=== PATIENT | female | born 1985 | race Caucasian/White ===

== ENCOUNTER 2017-07-15 13:56 | Emergency (ER) | payer OTHER ==
[2017-07-15 14:17] VITALS: BP 141/72
--- NOTE | 2017-07-15 14:38 | ERNOTE ---
ENT HPI Date of Service: 07/15/17 Presenting Symptoms: other - pharyngitis. Difficulty swallowing Time Seen by Provider: 07/15/17 14:28 Source: patient Exam Limitations: no limitations - Immun/Allergies/Home Medications Immunizations: IMMUNIZATION HX Immunizations Up to Date Yes History of Influenza Vaccine No Hx Pneumococcal Vaccination No Allergies/Adverse Reactions: Allergies Allergy/AdvReac Type Severity Reaction Status Date / Time Penicillins Allergy Verified 07/15/17 14:17 Home Medications: HOME MEDICATIONS Omeprazole [Prilosec] 20 mg PO DAILY 05/24/14 [Last Taken 11/20/14] Venlafaxine HCl [Effexor] 75 mg PO DAILY 11/20/14 [Last Taken 11/20/14] Azithromycin 250 mg PO DAILY 5 Days #6 tablet 07/15/17 [Last Taken Unknown] - History of Present Illness Narrative: Patient states that starting yesterday morning she has had sore throat with difficulty swallowing. States she had a fever yesterday but does not believe she has one today. Also continues with a mild headache which coincides with the throat pain. Denies any other symptoms. Date (Duration): 07/14/17 Severity: Present: moderate ENT Location: Present: throat Prearrival Treatment: Present: no prearrival treatment Modifying Factors - Worsens: Reports: other - Swallowing Associated Symptoms - ENT: Reports: fever, headache Review of Systems - Narrative Narrative: See HPI - Review of Systems Constitutional: Present: fever - Fever yesterday but denies today. EYE: Present: no symptoms reported ENT: Present: sore throat, other - Complaining of the sore throat with white spots in the back. Difficulty swallowing. Respiratory: Present: no symptoms reported, other - Denies any cough or dyspnea Gastrointestinal/Abdominal: Present: no symptoms reported Musculoskeletal: Present: no symptoms reported Skin: Present: no symptoms reported Neurological: Present: other - Mild headache. States not severe. Endocrine: Present: no symptoms reported - Patient's Past Medical History Patient History - Medical: Anxiety, Depression Patient History - Cardiac/Respiratory: No pertinent hx Patient History - Cancer: No Hx of Cancer Patient History - Surgical Procedures: No surgical history Patient History - Other: None LMP (females 10-50): 1 month - Social History Living Situations: spouse Abuse History: No History of abuse Psych History: Hx of Anxiety, Hx of Depression, Current tx/ever been on anti- depressants or anti-anxiety meds Smoking Status: Former smoker Have you smoked in the past 12 months: No Do you dip or chew tobacco: No Alcohol Use: rarely Drug Use: none - Immunizations Immunizations Up to Date: Yes Hx Pneumococcal Vaccination: No History of Influenza Vaccine: No Physical Exam - Physical Exam General Appearance: Present: wd/wn, alert, no apparent distress Head Exam: Present: normal inspection Ears, Nose, Throat: Present: other - Posterior pharynx erythema, Tonsilar exudate with 2+ hypertrophy bilateral. Uvula midline. Tongue moist. Neck: Present: full range of motion, other - Bilateral anterior cervical lymphadenopathy. Respiratory: Present: no respiratory distress, no accessory muscle use Skin Exam: Present: normal color, warm/dry, other - No rash Lymphatic Exam: Present: other - Bilateral anterior cervical lymphadenopathy ED Progress - Results and Orders Patient's Lab Results:: I have reviewed the patient's lab results. - Vital Signs Patient's Vital Signs:: I have reviewed the patient's vital signs. Vital Signs: Vital Signs 07/15/17 14:11 Temperature 37.1 C Pulse Rate 111 H Respiratory 16 Rate Blood Pressure 141/72 O2 Sat by Pulse 97 Oximetry - Progress/Reassessment Chief Complaint: Sore Throat Progress:: Unchanged Progress Note-Subjective: 07/15/17 15:03 Patient will be treated with a prescription for antibiotics. No acute ER intervention. Patient not in distress. Departure Clinical Impression: Pharyngitis Qualifiers: Pharyngitis/tonsillitis etiology: unspecified etiology Qualified Code(s): J02.9 - Acute pharyngitis, unspecified - Departure Disposition: Home self-care Condition: Good Additional Instructions: Your strep test was negative but I would disagree with the test results. You have the classic signs of strep throat so will treat you with a course of antibiotics. Continue with ibuprofen 600mg every 6 hrs with food and drink lots of fluids. If you worsen or do not improve let us know. Follow up with family provider as needed. Referrals: Svitlana Plummer MD [Primary Care Provider] - Prescriptions: Azithromycin 250 mg PO DAILY 5 Days #6 tablet
== END 2017-07-15 15:08 | disposition home or self-care (01) ==
LOC: ER 13:56
DX: J02.9 Acute pharyngitis, unspecified (principal); Z87.891 Personal history of nicotine dependence; F41.9 Anxiety disorder, unspecified; F32.9 Major depressive disorder, single episode, unspecified

== ENCOUNTER 2017-10-18 22:17 | Emergency (ER) | payer OTHER ==
[2017-10-18] MEDS ORDERED: BENZONATATE 100 MG CAPSULE PO ONE ×2 (23:05→23:08)
[2017-10-18] MEDS ORDERED: ALBUTEROL SULFATE/IPRATROPIUM 3 ML NEBU IH ONE ×2 (23:05→23:08)
--- NOTE | 2017-10-18 23:11 | ERNOTE ---
Date of Service: 10/18/17 Time Seen by Provider: 10/18/17 22:58 Stated Complaint: COUGH Presenting Symptoms:: cough, runny nose Immunizations: IMMUNIZATION HX Immunizations Up to Date Yes History of Influenza Vaccine No Hx Pneumococcal Vaccination No Allergies/Adverse Reactions: Allergies Penicillins Allergy (Verified 07/15/17 14:17) Home Medications: HOME MEDICATIONS Omeprazole [Prilosec] 20 mg PO DAILY 05/24/14 [Last Taken 11/20/14] Venlafaxine HCl [Effexor] 75 mg PO DAILY 11/20/14 [Last Taken 11/20/14] Azithromycin 250 mg PO DAILY 5 Days #6 tablet 07/15/17 [Last Taken Unknown] Benzonatate [Tessalon Perle] 100 mg PO TID PRN #25 capsule 10/18/17 [Last Taken Unknown] - History of Present Ilness Narrative: Complaints of a non productive cough since Sunday, and is aggravated tonight due to not being able to sleep. The coughing is worse when in the supine position. Runny nose, but has not had any fevers or shortness of breath. Date (Duration): 10/18/17 Timing: intermittent Severity: severe Modifying Factors - Improves: Reports: nothing Associated Symptoms: Reports: denies symptoms, cough, nasal congestion, nasal drainage. Denies: shortness of breath, wheezing Review of Systems - Review of Systems Constitutional: Present: no symptoms reported EYE: Present: no symptoms reported ENT: Present: no symptoms reported Respiratory: Present: no symptoms reported Cardiology: Present: no symptoms reported Gastrointestinal/Abdominal: Present: no symptoms reported Genitourinary: Present: no symptoms reported Musculoskeletal: Present: no symptoms reported Skin: Present: no symptoms reported Neurological: Present: no symptoms reported Endocrine: Present: no symptoms reported Hematologic/Lymphatic: Present: no symptoms reported Psych: Present: no symptoms reported - Patient's Past Medical History Patient History - Medical: Anxiety, Depression Patient History - Cardiac/Respiratory: No pertinent hx Patient History - Cancer: No Hx of Cancer Patient History - Surgical Procedures: No surgical history Patient History - Other: None - Social History Abuse History: No History of abuse Psych History: Hx of Anxiety, Hx of Depression, Current tx/ever been on anti- depressants or anti-anxiety meds Smoking Status: Former smoker Have you smoked in the past 12 months: Yes Do you dip or chew tobacco: No Alcohol Use: none Drug Use: none - Immunizations Immunizations Up to Date: Yes Hx Pneumococcal Vaccination: No History of Influenza Vaccine: No Physical Exam - Physical Exam General Appearance: Present: no apparent distress Head Exam: Present: normal inspection Eye Exam: Normal inspection: bilateral, PERRL: bilateral, EOMI: bilateral Ears, Nose, Throat: Present: nasal congestion Neck: Present: normal inspection, supple Respiratory: Present: no respiratory distress Cardiovascular/Chest: Present: regular rate, rhythm Gastrointestinal/Abdominal: Present: soft Back Exam: Present: normal inspection Extremity Exam: Present: normal inspection Neurological Exam: Present: alert, oriented, normal mood/affect Skin Exam: Present: normal color ED Progress - Vital Signs Patient's Vital Signs:: I have reviewed the patient's vital signs. Vital Signs: Vital Signs 10/18/17 22:29 Temperature 36.7 C Pulse Rate 114 H Respiratory 14 Rate Blood Pressure 127/82 O2 Sat by Pulse 96 Oximetry - Progress/Reassessment Chief Complaint: Cough Progress:: Improved Progress Note-Subjective: 10/18/17 23:34 After nebulizer treatment she is able to be supine without coughing, feels better. Departure Clinical Impression: Bronchitis - Departure Disposition: Home self-care Condition: Good Instructions: Acute Bronchitis Print Language: Kosovan Additional Instructions: Drink 2 liters of water over the next 24 hours. Referrals: Svitlana Plummer MD [Primary Care Provider] - Prescriptions: Benzonatate [Tessalon Perle] 100 mg PO TID PRN #25 capsule PRN Reason: Cough
[2017-10-18] MEDS ORDERED: CODEINE PHOSPHATE/GUAIFENESIN 5 ML UDC PO ONE (23:58)
[2017-10-18] MEDS ORDERED: CODEINE PHOSPHATE/GUAIFENESIN 5 ML UDC ONE (23:59)
[2017-10-19] MEDS ORDERED: CODEINE PHOSPHATE/GUAIFENESIN 5 ML UDC ONE (00:02)
[2017-10-19 00:11] VITALS: BP 120/80
== END 2017-10-19 00:03 | disposition home or self-care (01) ==
LOC: ER 22:17
DX: J40 Bronchitis, not specified as acute or chronic (principal); Z87.891 Personal history of nicotine dependence

== ENCOUNTER 2020-12-20 15:55 | Observation (INO) ==
[2020-12-20] MEDS: NITROGLYCERIN 0.4 MG/TAB BTL SL PRN ×2 (16:19→16:30)
[2020-12-20 16:37] LABS: Hematocrit 41.2 % (37.0-47.0); Hemoglobin 13.1 gm/dL (12.5-16.0); Mean Cell Volume 86.2 fl (78-100); Mean Corpuscular Hemoglobin 27.4 pg (27-31); Mean Corpuscular Hgb Conc 31.8 g/dl (32-36); Mean Platelet Volume 11.9 fl (8-12.5); Neutrophil # 6.6 K/mm3 (1.3-6.0); Neutrophil % 63.2 % (42-75.0); Platelet Count 378 K/mm3 (150-450); Red Blood Count 4.78 M/mm3 (4.2-5.4); Red Cell Distribution Width 14.1 % (11.5-14.0); White Blood Count 10.4 K/mm3 (4.0-10.5)
[2020-12-20 16:58] LABS: ALT 76 U/L (19-67); AST 48 U/L (0-48); Albumin * 3.4 gm/dl (3.4-5.0); Alkaline Phosphatase * 107 U/L (50-170); Anion Gap 14.4 mmol/L (6.8-13.8); BUN/Creatinine Ratio 11.5 (9.0-21.6); Bilirubin, Total 0.1 mg/dL (0.0-1.1); Blood Urea Nitrogen 9 mg/dL (3-23); Ca. Corrected For Albumin 9.1 mg/dL (8.4-10.2); Calcium * 8.9 mg/dL (7.9-10.9); Carbon Dioxide 22.5 mmol/L (24-32.6); Chloride 104 mmol/L (97-106); Glucose * 234 mg/dL (70-110); Potassium 3.9 mmol/L (3.4-4.6); Sodium 137 mmol/L (132-142); Total Protein 7.4 gm/dL (6.2-8.2); Troponin I Less than 0.017 ng/mL (0.00-0.10)
[2020-12-20] MEDS ORDERED: KETOROLAC TROMETHAMINE 30 MG/ML VIAL IV ONE (17:45)
--- NOTE | 2020-12-20 17:47 | ERNOTE ---
Chest Pain/Cardiac HPI Date of Service: 12/20/20 Chief Complaint: Chest Pain Time Seen by Provider: 12/20/20 16:02 Source: patient, RN notes reviewed, past records Exam Limitations: no limitations Immunizations: IMMUNIZATION HX Immunizations Up to Date Yes History of Influenza Vaccine Yes Hx Pneumococcal Vaccination No Allergies/Adverse Reactions: Allergies Penicillins Allergy (Intermediate, Verified 12/20/20 16:06) Hives Home Medications: HOME MEDICATIONS omeprazole 20 mg tablet,delayed release 40 mg PO DAILY tab 09/15/20 [Last Taken Unknown] cariprazine 1.5 mg capsule 1.5 mg PO DAILY #30 cap 11/03/20 [Last Taken Unknown] lorazepam 1 mg tablet 1 mg PO TID PRN #90 tab 11/03/20 [Last Taken Unknown] venlafaxine 150 mg capsule,extended release 24 hr 150 mg PO DAILY #30 cap 11/03/20 [Last Taken Unknown] venlafaxine 75 mg capsule,extended release 24 hr 75 mg PO DAILY #30 cap 11/03/20 [Last Taken Unknown] methylprednisolone 4 mg tablets in a dose pack See Rx Instructions PO PER PKG DIR #21 tab 11/18/20 [Last Taken Unknown] tizanidine 4 mg tablet 4 mg PO Q6H PRN #30 tab 11/18/20 [Last Taken Unknown] topiramate 100 mg tablet 100 mg PO HS #30 tab 11/18/20 [Last Taken Unknown] Pain Score #1 Pain Score: 7 Narrative: Mily is a 35 year old female brought to the ED by ambulance for chest pain. This began approximately 35 minutes ago while she was walking her dog. Her pain radiated into her left arm and she felt mildly short of breath. She was given aspirin and 1 sublingual nitro by EMS. Her pain improved slightly. She has no prior cardiac history. Date (Duration): 12/20/20 Time (Timing): 15:20 Timing: constant Severity/Quality: moderate, pressure Location: left chest Chest Pain Radiation: arms Activities at Onset: activity Modifying Factors - Improves: Present: nitroglycerin. Absent: rest Modifying Factors - Worsens: Present: nothing Nitro Today/Relief: 0.4 mg x 1, provided by EMS Aspirin Treatment Today: 81 mg x 4 Associated Symptoms: Present: shortness of breath. Absent: cough, fever/chills, nausea, vomiting Prior Chest Pain/Cardiac Workup: Denies: prior chest pain Prior Treatment: Denies: recently seen Review of Systems - Review of Systems Constitutional: Absent: recent illness, fever, chills EYE: Present: no symptoms reported ENT: Present: no symptoms reported Respiratory: Present: shortness of breath. Absent: cough Cardiology: Present: chest pain. Absent: edema, claudication Gastrointestinal/Abdominal: Absent: nausea, vomiting, abdominal pain Genitourinary: Present: no symptoms reported Musculoskeletal: Absent: muscle pain, joint pain Skin: Absent: rash, lesions Neurological: Absent: headache, dizziness/light-headedness Endocrine: Present: no symptoms reported Hematologic/Lymphatic: Absent: easy bruising, easy bleeding Psych: Present: no symptoms reported Medical History (Last Reviewed 12/20/20 @ 18:45 by Veronika Mosley NP) Bipolar disorder (Chronic) Borderline personality disorder (Chronic) Major depression (Chronic) Generalized anxiety disorder (Chronic) Migraine Mood swings Vertigo Anxiety Carpal tunnel syndrome Depression GERD (gastroesophageal reflux disease) Herpes genitalis Major depressive disorder, recurrent Surgical History: Surgical History (Last Reviewed 12/20/20 @ 18:45 by Veronika Mosley NP) [place] teeth extracted [place] teeth extracted Family History: Family History (Last Reviewed 12/20/20 @ 18:45 by Veronika Mosley NP) Grandfather Cancer Grandmother Heart disease Diabetes Myocardial infarction Hypertension Social History: (Last Reviewed 12/20/20 @ 18:45 by Veronika Mosley NP) Social History: mcc: No Marital status: Single household members: significant other current occupational status: employed Highest level of school completed/degree received: some college, no degree Service: No Tobacco: Smoking Status: Former smoker Alcohol: alcohol intake: current Substance Use: substance use type: does not use Dietary Habits: caffeine: Yes Physical Exam - Physical Exam General Appearance: Present: alert, mild distress, obese Head Exam: Present: normal inspection Eye Exam: Normal inspection: bilateral Neck: Present: normal inspection, nontender, supple, full range of motion Respiratory: Present: no respiratory distress, normal breath sounds, no accessory muscle use, lungs clear, chest tenderness - left Cardiovascular/Chest: Present: no murmur, normal peripheral pulses, tachycardia Back Exam: Present: normal inspection, normal range of motion Extremity Exam: Present: normal inspection, non-tender, normal range of motion, no edema Neurological Exam: Present: alert, oriented, normal mood/affect, no motor/sensory deficits Skin Exam: Present: normal color, warm/dry Progress - Results and Orders Patient's Lab Results:: I have reviewed the patient's lab results. - Vital Signs Patient's Vital Signs:: I have reviewed the patient's vital signs. Vital Signs: Vital Signs 12/20/20 16:01 12/20/20 16:05 12/20/20 16:08 Temperature 36.4 C 36.4 C Pulse Rate 104 H 109 H 109 H Respiratory Rate 18 18 Blood Pressure 135/85 135/85 O2 Sat by Pulse Oximetry 95 95 12/20/20 16:19 12/20/20 16:24 12/20/20 16:26 Temperature 36.4 C 36.7 C Pulse Rate 99 108 H 115 H Respiratory Rate 21 H 15 Blood Pressure 128/78 124/74 O2 Sat by Pulse Oximetry 95 95 12/20/20 16:32 12/20/20 16:33 Temperature Pulse Rate 117 H 117 H Respiratory Rate 14 Blood Pressure 134/71 O2 Sat by Pulse Oximetry 95 - EKG EKG #1 EKG: other - Sinus tach, rate 107 EKG read: Reviewed by me - X-Ray X-Ray #1 X-Ray: chest Interpretation: Reviewed by me X-ray Comments: No acute cardiopulmonary findings - Progress/Reassessment Chief Complaint: Chest Pain Progress:: Improved Plan - Plan Plan: Chest pain resolved after the patient was given an additional 2 sublingual nitro in the ED. Initial troponin and EKG are normal. Her pain did slowly start to r eturn a while later, Toradol was given with relief. Since her pain resolved with nitro, her presentation is slightly more suspicious for a cardiac etiology. A repeat troponin was done after 3 hours and is slightly elevated at 0.217. The patient continues to be asymptomatic. Dr. Sotelo was contacted and the patient will be admitted to observation for further monitoring. Departure Clinical Impression: Chest pain, rule out acute myocardial infarction - Departure Disposition: Still a patient Condition: Stable Referrals: Svitlana Plummer MD [Primary Care Provider] -
--- NOTE | 2020-12-21 06:00 | HPDIS ---
Chief Complaint - Chief Complaint Date of Service: 12/21/20 Time of Service: 05:39 Chief Complaint: chest pain History of Present Illness: 35-year-old female with a past medical history of morbid obesity, anxiety, bipolar disorder, GERD, migraine, borderline personality disorder and depression presents from home with complaints of chest pain. She stated her pain began around 3:30 PM on December 20, 2020 while she was in her backyard taking her dog to use the potty. She described the pain as a pressure rated 9 out 10. Her pain was located throughout her chest and radiated down both arms to her elbows. Her symptoms were associated with shortness of breath and dizziness. She called 911 and was brought to the ER. In the ER she was found to have an unremarkable EKG, troponin of less than 0.017. Troponin continued to climb to 0.217. She is currently asymptomatic and had received a full dose dose of aspirin in route to the ER. Her pain resolved with 2 doses of nitroglycerin. She was admitted for chest pain observation. Medical History (Last Reviewed 12/20/20 @ 21:31 by Lory Mcnulty RN) Bipolar disorder (Chronic) Borderline personality disorder (Chronic) Major depression (Chronic) Generalized anxiety disorder (Chronic) Migraine Mood swings Vertigo Anxiety Carpal tunnel syndrome Depression GERD (gastroesophageal reflux disease) Herpes genitalis Major depressive disorder, recurrent Surgical History: Surgical History (Last Reviewed 12/20/20 @ 21:31 by Lory Mcnulty RN) [place] teeth extracted [place] teeth extracted Family History: Family History (Last Reviewed 12/20/20 @ 21:31 by Lory Mcnulty RN) Grandfather Cancer Grandmother Heart disease Diabetes Myocardial infarction Hypertension Social History: (Last Reviewed 12/20/20 @ 21:31 by Lory Mcnulty RN) Social History: mcc: No Marital status: Single household members: significant other current occupational status: employed Highest level of school completed/degree received: some college, no degree Service: No Tobacco: Smoking Status: Former smoker Alcohol: alcohol intake: current Substance Use: substance use type: does not use Dietary Habits: caffeine: Yes Review Of Systems (GEN) - Review of Systems Generalized/Overall Review: Absent: Fever Respiratory: Present: Shortness of Breath Cardiac: Present: Chest Pain Abdominal: Absent: Abdominal Pain Neurological: Present: Other - dizziness Misc: All systems neg except as marked Immunizations: IMMUNIZATION HX Immunizations Up to Date Yes History of Influenza Vaccine Yes Hx Pneumococcal Vaccination No Allergies/Adverse Reactions: Allergies Allergy/AdvReac Type Severity Reaction Status Date / Time Penicillins Allergy Intermediate Hives Verified 12/20/20 16:06 Home Medications: HOME MEDICATIONS omeprazole 20 mg tablet,delayed release 40 mg PO DAILY tab 09/15/20 [Last Taken Unknown] cariprazine 1.5 mg capsule 1.5 mg PO DAILY #30 cap 11/03/20 [Last Taken Unknown] lorazepam 1 mg tablet 1 mg PO TID PRN #90 tab 11/03/20 [Last Taken Unknown] venlafaxine 150 mg capsule,extended release 24 hr 150 mg PO DAILY #30 cap 11/03/20 [Last Taken Unknown] venlafaxine 75 mg capsule,extended release 24 hr 75 mg PO DAILY #30 cap 11/03/20 [Last Taken Unknown] methylprednisolone 4 mg tablets in a dose pack See Rx Instructions PO PER PKG DIR #21 tab 11/18/20 [Last Taken Unknown] tizanidine 4 mg tablet 4 mg PO Q6H PRN #30 tab 11/18/20 [Last Taken Unknown] topiramate 100 mg tablet 100 mg PO HS #30 tab 11/18/20 [Last Taken Unknown] Exam - Exam Vital Signs: Vital Signs - Last Taken Temp 36.5 C 12/21/20 02:53 Pulse 70 12/21/20 02:53 Resp 16 12/21/20 02:53 BP 110/56 12/21/20 02:53 Pulse Ox 94 12/21/20 02:53 Constitutional: Present: Alert, Cooperative, Well developed, Well nourished, No distress, Morbidly obese ENT Exam: Present: hearing grossly normal, moist mucous membranes Eye Exam: bilateral eye: normal inspection, EOMI Neck: Present: non-tender, supple. Absent: lymphadenopathy (R), lymphadenopathy (L) Back Exam: Present: no CVA tenderness, no vertebral tenderness Respiratory: Present: lungs clear, no respiratory distress, no accessory muscle use. Absent: crackles, rhonchi, wheezing Cardiovascular/Chest: Present: normal peripheral pulses, regular rate, rhythm, no edema, no murmur Peripheral Pulses: dorsalis-pedis (R): 2+, dorsalis-pedis (L): 2+ Abdomen: Present: Normal bowel sounds, soft, nontender Extremity: Present: no pedal edema Skin Exam: Present: normal color, warm/dry Neurologic: Present: alert, normal mood/affect Appearance: Present: appropriate appearance, appropriate insight Eye contact: Present: cooperative, good eye contact Thoughts: Present: normal thought pattern, normal mood /affect Diagnostic Studies: Abnormal Lab Results 12/20/20 12/20/20 12/20/20 Range/Units 16:30 16:30 19:28 MCHC 31.8 L (32-36) g/dl RDW 14.1 H (11.5-14.0) % Immature Gran % (Auto) 0.80 H (0.001-0.429) % Immature Gran # (Auto) 0.08 H (0.000-0.0310) K/mm3 Neutrophils # 6.6 H (1.3-6.0) K/mm3 Carbon Dioxide 22.5 L (24-32.6) mmol/L Anion Gap 14.4 H (6.8-13.8) mmol/L Random Glucose 234 H (70-110) mg/dL ALT 76 H (19-67) U/L Troponin I 0.217 H* (0.00-0.10) ng/mL 12/21/20 Range/Units 04:32 MCHC (32-36) g/dl RDW (11.5-14.0) % Immature Gran % (Auto) (0.001-0.429) % Immature Gran # (Auto) (0.000-0.0310) K/mm3 Neutrophils # (1.3-6.0) K/mm3 Carbon Dioxide (24-32.6) mmol/L Anion Gap (6.8-13.8) mmol/L Random Glucose (70-110) mg/dL ALT (19-67) U/L Troponin I 3.267 H* (0.00-0.10) ng/mL Laboratory Results WBC 10.4 K/mm3 (4.0-10.5) 12/20/20 16:30 RBC 4.78 M/mm3 (4.2-5.4) 12/20/20 16:30 Hgb 13.1 gm/dL (12.5-16.0) 12/20/20 16:30 Hct 41.2 % (37.0-47.0) 12/20/20 16:30 MCV 86.2 fl (78-100) 12/20/20 16:30 MCH 27.4 pg (27-31) 12/20/20 16: MCHC 31.8 g/dl (32-36) L 12/20/20 16:30 RDW 14.1 % (11.5-14.0) H 12/20/20 16:30 Plt Count 378 K/mm3 (150-450) 12/20/20 16:30 MPV 11.9 fl (8-12.5) 12/20/20 16:30 Immature Gran % (Auto) 0.80 % (0.001-0.429) H 12/20/20 16: Immature Gran # (Auto) 0.08 K/mm3 (0.000-0.0310) H 12/20/20 16:30 Neutrophils % 63.2 % (42-75.0) 12/20/20 16: Lymphocytes % 26.8 % (20-51) 12/20/20 16: Monocytes % 5.5 % (0.0-9) 12/20/20 16:30 Eosinophils % 2.9 % (0.0-3.0) 12/20/20 16: Basophils % 0.8 % (0.0-1.0) 12/20/20 16: Nucleated RBC % 0.0 k/mm3 (0-1) 12/20/20 16:30 Neutrophils # 6.6 K/mm3 (1.3-6.0) H 12/20/20 16:30 Lymphocytes # 2.79 k/mm3 (1.5-3.5) 12/20/20 16: Monocytes # 0.6 k/mm3 (0.0-1.0) 12/20/20 16: Eosinophils # 0.3 k/mm3 (0.0-0.7) 12/20/20 16: Absolute Basophils 0.1 k/mm3 (0.0-0.1) 12/20/20 16: D-Dimer 0.36 ugFEU/mL (0.19-0.49) 12/20/20 16:30 Sodium 137 mmol/L (132-142) 12/20/20 16:30 Plasma Sodium 139 mmol/L (130-142) 12/20/20 16:30 Potassium 3.9 mmol/L (3.4-4.6) 12/20/20 16:30 Chloride 104 mmol/L (97-106) 12/20/20 16:30 Carbon Dioxide 22.5 mmol/L (24-32.6) L 12/20/20 16:30 Anion Gap 14.4 mmol/L (6.8-13.8) H 12/20/20 16:30 BUN 9 mg/dL (3-23) 12/20/20 16:30 Creatinine 0.78 mg/dL (0.4-1.4) 12/20/20 16:30 Est GFR (Non-Af Amer) 88 mL/min (60-130) 12/20/20 16:30 BUN/Creatinine Ratio 11.5 (9.0-21.6) 12/20/20 16:30 Random Glucose 234 mg/dL (70-110) H 12/20/20 16:30 Calcium 8.9 mg/dL (7.9-10.9) 12/20/20 16:30 Calcium Adj for Albumin 9.1 mg/dL (8.4-10.2) 12/20/20 16:30 Total Bilirubin 0.1 mg/dL (0.0-1.1) 12/20/20 16:30 AST 48 U/L (0-48) 12/20/20 16:30 ALT 76 U/L (19-67) H 12/20/20 16:30 Alkaline Phosphatase 107 U/L (50-170) 12/20/20 16:30 Troponin I 3.267 ng/mL (0.00-0.10) H* 12/21/20 04:32 Total Protein 7.4 gm/dL (6.2-8.2) 12/20/20 16:30 Albumin 3.4 gm/dl (3.4-5.0) 12/20/20 16:30 SARS-CoV-2 (PCR) Not detected (NotDetected) 12/20/20 20:09 Assessment/Plan - Narrative Narrative: 35-year-old female with a past medical history of morbid obesity anxiety, bipolar disorder, GERD, migraine, borderline personality disorder and depression presents from home with complaints of chest pain. She stated her pain began around 3:30 PM on December 20, 2020 while she was in her backyard taking her dog to use the potty. She described the pain as a pressure rated 9 out 10. Her pain was located throughout her chest and radiated down both arms to her elbows. Her symptoms were associated with shortness of breath and dizziness. She called 911 and was brought to the ER. In the ER she was found to have an unremarkable EKG, troponin of less than 0.017. Troponin continued to climb to 0.217. She is currently asymptomatic and had received a full dose dose of aspirin in route to the ER. Her pain resolved with 2 doses of nitroglycerin. She was admitted for chest pain observation. Repeat troponin performed this morning climbed to 3.267. Due to this significant elevation in troponin she will require a higher level of care and likely a cardiac cath. We will transfer the patient to [facility] in [place]. She is currently stable and asymptomatic - Assessment/Plan (1) Chest pain, rule out acute myocardial infarction Problem: Acute (2) Elevated troponin Problem: Acute (3) Migraine Problem: Acute (4) Bipolar disorder Problem: Chronic Qualifiers: Active/Remission status: currently active Current bipolar episode type: depressed Current episode severity: severe Psychotic features: without psychotic features Qualified Code(s): F31.4 - Bipolar disorder, current episode depressed, severe, without psychotic features (5) Borderline personality disorder Problem: Chronic (6) Major depression Problem: Chronic Qualifiers: Major depression recurrence: recurrent Active/Remission status: currently active Major depression episode severity: moderate Qualified Code(s): F33.1 - Major depressive disorder, recurrent, moderate (7) Generalized anxiety disorder Problem: Chronic (1) Chest pain, rule out acute myocardial infarction Problem: Acute (2) Elevated troponin Problem: Acute (3) Migraine Problem: Acute (4) Bipolar disorder Problem: Chronic Qualifiers: Active/Remission status: currently active Current bipolar episode type: depressed Current episode severity: severe Psychotic features: without psychotic features Qualified Code(s): F31.4 - Bipolar disorder, current episode depressed, severe, without psychotic features (5) Borderline personality disorder Problem: Chronic (6) Major depression Problem: Chronic Qualifiers: Major depression recurrence: recurrent Active/Remission status: currently active Major depression episode severity: moderate Qualified Code(s): F33.1 - Major depressive disorder, recurrent, moderate (7) Generalized anxiety disorder Problem: Chronic Hospital Course: 35-year-old female with a past medical history of anxiety, bipolar disorder, GE RD, migraine, borderline personality disorder and depression presents from home with complaints of chest pain. She stated her pain began around 3:30 PM on December 20, 2020 while she was in her backyard taking her dog to use the potty. She described the pain as a pressure rated 9 out 10. Her pain was located throughout her chest and radiated down both arms to her elbows. Her symptoms were associated with shortness of breath and dizziness. She called 911 and was brought to the ER. In the ER she was found to have an unremarkable EKG, troponin of less than 0.017. Troponin continued to climb to 0.217. She is currently asymptomatic and had received a full dose dose of aspirin in route to the ER. Her pain resolved with 2 doses of nitroglycerin. She was admitted for chest pain observation. Repeat troponin performed this morning climbed to 3.267. Due to this significant elevation in troponin she will require a higher level of care and likely a cardiac cath. We will transfer the patient to [facility] in [place]. She is currently stable and asymptomatic. The accepting physician at [facility] is Dr. Morlaes. The stack clerk, Dr. Hastings is also aware and has also accepted the patient. Procedures Performed: none Results and Findings: Lab Pending Results 12/20/20 16:30: WBC 10.4, RBC 4.78, Hgb 13.1, Hct 41.2, MCV 86.2, MCH 27.4, MCHC 31.8 L, RDW 14.1 H, Plt Count 378, MPV 11.9, Immature Gran % (Auto) 0.80 H, Immature Gran # (Auto) 0.08 H, Neutrophils % 63.2, Lymphocytes % 26.8, Monocytes % 5.5, Eosinophils % 2.9, Basophils % 0.8, Nucleated RBC % 0.0, Neutrophils # 6.6 H, Lymphocytes # 2.79, Monocytes # 0.6, Eosinophils # 0.3, Absolute Basophils 0.1 12/20/20 16:30: Sodium 137, Plasma Sodium 139, Potassium 3.9, Chloride 104, Carbon Dioxide 22.5 L, Anion Gap 14.4 H, BUN 9, Creatinine 0.78, Est GFR (Non-Af Amer) 88, BUN/Creatinine Ratio 11.5, Random Glucose 234 H, Calcium 8.9, Calcium Adj for Albumin 9.1, Total Bilirubin 0.1, AST 48, ALT 76 H, Alkaline Phosphatase 107, Troponin I Less than 0.017, Total Protein 7.4, Albumin 3.4 12/20/20 16:30: D-Dimer 0.36 12/20/20 19:28: Troponin I 0.217 H* 12/20/20 20:09: SARS-CoV-2 (PCR) Not detected 12/21/20 04:32: Troponin I 3.267 H* Disposition: Intermediate Care Facility ICF Condition: Stable Discharge Activity: Activity as tolerated Discharge Diet: NPO Referrals: Svitlana Plummer MD [Primary Care Provider] - Complete Home Medications List: Complete Home Medication List: omeprazole 20 mg tablet,delayed release 40 mg PO DAILY tab 09/15/20 cariprazine 1.5 mg capsule 1.5 mg PO DAILY #30 cap 11/03/20 lorazepam 1 mg tablet 1 mg PO TID PRN #90 tab 11/03/20 venlafaxine 150 mg capsule,extended release 24 hr 150 mg PO DAILY #30 cap 11/03/20 venlafaxine 75 mg capsule,extended release 24 hr 75 mg PO DAILY #30 cap 11/03/20 methylprednisolone 4 mg tablets in a dose pack See Rx Instructions PO PER PKG DIR #21 tab 11/18/20 tizanidine 4 mg tablet 4 mg PO Q6H PRN #30 tab 11/18/20 topiramate 100 mg tablet 100 mg PO HS #30 tab 11/18/20
[2020-12-21 06:58] VITALS: BP 113/64
== END 2020-12-21 06:41 | disposition short-term general hospital (02) ==
LOC: ER 15:55 → MS 15:55
PROVIDERS: ADMIT Internal Medicine; ATTEND Internal Medicine